=== PATIENT | female | born 1960 | race Caucasian/White ===

== ENCOUNTER → 2021-03-29 | Day surgery (SDC) | payer BC ==
[2021-03-23 17:33] VITALS: BMI 28.3
[~2021-03-29] MED LIST: ACETAMINOPHEN 1000 MG/100 ML VIAL IVPB PRN; BUPIVACAINE HCL 50 ML ONE; DEXAMETHASONE SOD PHOSPHATE 4 MG/1 ML VIAL ONE; ERYTHROMYCIN 0.5% OPHTHALMIC OINTMENT 3.5 GM TUBE ONE; KETOROLAC TROMETHAMINE 30 MG/1 ML VIAL ONE; LIDOCAINE 1%/EPI 1:100000 (20 ML MULTI DOSE VIAL) ONE; MIDAZOLAM HCL 2 MG/2 ML SINGLE DOSE VIAL ONE; ONDANSETRON 4 MG/2 ML VIAL IVPUSH PRN; ONDANSETRON 4 MG/2 ML VIAL ONE; POVIDONE-IODINE 5% OPHTHALMIC PREP 30 ML SOLUTION ONE; PROMETHAZINE HCL 25 MG/1 ML VIAL IVPUSH PRN; PROPOFOL 20 ML ONE; SUCCINYLCHOLINE CHLORIDE 200 MG/10 ML SYRINGE ONE; TETRACAINE 0.5% OPHTH SOLN 2 ML BOTTLE ONE; ceFAZolin SODIUM 1 GM VIAL ONE; oxyCODONE HCL 5 MG TABLET PO PRN
[2021-03-29 10:29] VITALS: BP 134/74; PULSE 82; TEMP 98.1
== END | disposition home or self-care (01) ==
LOC: FASU 06:14
PROVIDERS: ATTEND Ophthalmology
PROC: 08BQ0ZX Excision of Right Lower Eyelid, Open Approach, Diagnostic (ICD-10-PCS; principal; 2021-03-29 08:09)
DX: D31.61 Benign neoplasm of unspecified site of right orbit (principal)
CPT/HCPCS: 88304-TC; 94760